=== PATIENT | female | born 1960 | race Caucasian/White ===

== ENCOUNTER 2019-09-22 21:16 | Emergency (ER) | payer OTHER, SELFPAY ==
[2019-09-22 21:17] VITALS: BP 132/84; PULSE 105; RESP 20; TEMP 37.1; O2SAT 99; BMI 24.7
--- NOTE | 2019-09-22 21:18 | ED.RN ---
NO OLD EKGS IN MUSE
[2019-09-22 21:32] VITALS: BP 149/70; PULSE 103; RESP 18; O2SAT 98
--- NOTE | 2019-09-22 21:36 | ED.DCSUM_ITS ---
History of Present Illness Chief Complaint: Palpitations Narrative: Patient is a 59-year-old female who presents with palpitations. This began just before presentation to the emergency department. She denies chest pain or shortness of breath. She denies any recent illness. No fevers cough rhinorrhea rashes headaches. She denies any medical history or daily medications. Past Medical History - Allergies and Home Meds Allergies/Adverse Reactions: Allergies No Known Allergies Allergy (Verified 09/22/19 21:18) Primary Care Physician: Manpreet Rutledge MD [Primary Care Provider] - Past Medical History: None Smoking Status: Never smoker Review of Systems All systems negative except as indicated General: Denies: Fever Eyes: Denies: Visual changes - bilaterally ENT: Denies: Bilateral ear pain Cardiovascular: Reports: Palpitations. Denies: Chest pain Respiratory: Denies: Dyspnea Gastrointestinal: Denies: Abdominal pain, Nausea, Vomiting, Diarrhea Musculoskeletal: Denies: Myalgias, Arthralgias Skin: Denies: Rash Neurological: Denies: Headache Physical Exam Vital Signs/Narrative: Vital Signs Temp Pulse Resp BP Pulse Ox 09/22/19 21:32 103 H 18 149/70 H 98 09/22/19 21:17 98.8 F 105 H 20 H 132/84 H 99 Inital Vital Signs reviewed: Yes General: Well nourished Head: Normocephalic Eyes: EOMI ENT: Moist mucous membranes Neck: Supple Cardiovascular: Regular rate, Regular rhythm Respiratory: No distress, CTA bilaterally Abdomen: Soft, Nontender Extremities: Nontender Skin: Normal color Neurological: Alert Psychological: Normal affect Diagnostic/Tx/Re-eval Laboratory Results 09/22/19 09/22/19 21:45 21:45 WBC 8.8 RBC 4.67 Hgb 14.1 Hct 42.7 MCV 91.4 MCH 30.2 MCHC 33.0 RDW Std Deviation 44.5 H RDW Coeff of Elena 13.2 Plt Count 238 MPV 10.2 Immature Gran % (Auto) 0.100 Neut % (Auto) 65.0 Lymph % (Auto) 23.5 [place] % (Auto) 8.6 Eos % (Auto) 2.3 Baso % (Auto) 0.5 Absolute Neuts (auto) 5.8 Absolute Lymphs (auto) 2.08 Nucleated RBC % 0 Sodium 140 Potassium 4.4 Chloride 107 Carbon Dioxide 30.0 Anion Gap 3 L BUN 18 Creatinine 0.98 Estim Creat Clear Calc 51.76 Est GFR (MDRD) Af Amer 75 Est GFR (MDRD) Non-Af 62 BUN/Creatinine Ratio 18.4 Glucose 131 H Calcium 9.3 Troponin I < 0.015 TSH 3.64 - Medical Decision Making EKG shows sinus rhythm with premature supraventricular complexes. No acute ischemic changes. Labs unremarkable including normal TSH and negative troponin. Patient does not have evidence of dysrhythmia. Her palpitations may be related to PACs. She was advised on supportive care. She was advised to follow-up with her primary care physician but was instructed on signs and symptoms to monitor for that should prompt return here to the emergency department for reevaluation and she was discharged home. ED Disposition - Plan for ED Patient: Disposition: Home or Assisted Living Diagnosis: Palpitations Instructions: ED Palpitations Referrals: Manpreet Rutledge MD [Primary Care Provider] -
[2019-09-22 21:57] LABS: Absolute Lymphocyte Count 2.08 X10^3/uL (0.83-4.51); Absolute Neutrophil Count 5.8 X10^3/uL (2.0-7.7); Basophil# 0.04 X10^3/uL; Basophil% 0.5 % (0-1); Eosinophils% 2.3 % (0-5); Hematocrit 42.7 % (37-47); Hemoglobin 14.1 g/dL (12.0-15.0); Lymphocyte # 2.08 X10^3/ul (4.0); Lymphocyte % 23.5 % (19-41); Mean Corpuscular Hgb 30.2 pg (27.0-32.0); Mean Corpuscular Volume 91.4 fL (81-99); Mean Platelet Vol. 10.2 fl (6.2-12.0); Monocyte# 0.76 X10^3/uL; Monocyte% 8.6 % (0-10); NRBC Flagged by Analyzer 0 % (0-5); Neutrophil # 5.75 X10^3/uL (2.7-7.7); Platelet Count 238 K/mm3 (150-450); RBC Distribution Width CV 13.2 % (11.6-14.6); RBC Distribution Width SD 44.5 fl (35.1-43.9); Red Blood Count 4.67 M/mm3 (4.2-5.4); White Blood Count 8.8 K/mm3 (4.4-11.0)
--- NOTE | 2019-09-22 22:18 | EKG12_ITS ---
Test Reason : PALPITATIONS Blood Pressure : / mmHG Vent. Rate : 099 BPM Atrial Rate : 099 BPM P-R Int : 148 ms QRS Dur : 082 ms QT Int : 344 ms P-R-T Axes : 078 056 045 degrees QTc Int : 441 ms Sinus rhythm with Premature supraventricular complexes Nonspecific ST abnormality Abnormal ECG Confirmed by ELVIS COOK, SHARATH ([id number]), film editor supervisor JENIFER GARZA ([id number] on 09/24/2019 9:43:24 AM Referred By: ANGELA Confirmed By:SHARATH LEAL MD
[2019-09-22 22:33] LABS: Anion Gap 3 (5-15); BUN 18 mg/dL (7-18); BUN/Creat Ratio 18.4 RATIO (10-20); Calcium,Total 9.3 mg/dL (8.5-10.1); Chloride 107 mmol/L (98-107); Creatinine, Serum 0.98 mg/dL (0.55-1.02); EST Glomerular Filtration Rate 62 mL/min (>60); Est Glom Filt Rate - Afr Amer 75 mL/min (>60); Estimated Creatinine Clearance 51.76 ml/min; Glucose 131 mg/dL (74-106); Potassium 4.4 mmol/L (3.5-5.1); Sodium Level 140 mmol/L (136-145); Thyroid Stim Hormone (TSH) 3.64 uIU/mL (0.358-3.74)
[2019-09-22 23:16] VITALS: BP 113/64; PULSE 80; RESP 22; O2SAT 95
== END 2019-09-22 23:26 | disposition home or self-care (01) ==
PROVIDERS: Emergency Provider Emergency Medicine; PCP Family Medicine
DX: R00.2 Palpitations (principal)
CPT/HCPCS: 80048; 84443; 84484; 85025; 93005; 99284; A4216